=== PATIENT | female | born 1955 | race Caucasian/White ===

== ENCOUNTER → 2019-03-09 | Day surgery (SDC) | payer BC ==
[~2019-03-09] MED LIST: CHLO25TA10 PO; CLONAZEPAM1 MG PO; ESTR1TAB15 PO; IV RINGERS,LACTATED 1000ML 1,000 ML IV SCH; LIDOCAINE 2% PF 5 ML VIAL. ONE; PROPOFOL 20 ML IV ONE
--- NOTE | 2019-03-09 07:20 | HP ---
ADMIT DATE: 03/09/2019 UPDATE HISTORY AND PHYSICAL REFERRING PHYSICIAN: Stefan Rodriguez MD REASON FOR CONSULTATION: Screening colonoscopy. HISTORY OF PRESENT ILLNESS: A 63-year-old female with past medical history significant for hypertension, hyperlipidemia, history of diverticulitis, status post colon resection, is seen for a screening colonoscopy. Bowel habits have been regular without diarrhea or constipation. There has been no melena and/or hematochezia. Weight and appetite have been stable and she is otherwise without additional complaints. PAST MEDICAL HISTORY: Hypertension, hyperlipidemia, diverticulitis, status post resection, also history of breast biopsy, and hysterectomy. ALLERGIES: None. MEDICATIONS: Include chlorthalidone, clonazepam, estradiol. FAMILY AND SOCIAL HISTORY: Nonsmoker, nondrinker. At this time, family history noncontributory. REVIEW OF SYSTEMS: Per records. PHYSICAL EXAMINATION: GENERAL: Reveals a well-nourished, well-developed female who is alert, cooperative, in no acute distress. VITAL SIGNS: Temperature 97.4, pulse 80, respiratory rate 18. HEENT: Reveals normocephalic, atraumatic head. Pupils and extraocular muscles are not tested. Sclerae anicteric. NECK: Supple. LUNGS: Clear. CARDIOVASCULAR: Reveals an S1, S2 without S3, S4 or appreciable murmur. ABDOMEN: Reveals a soft abdomen, normal bowel sounds, without appreciable hepatosplenomegaly. EXTREMITIES: Reveals no cyanosis, clubbing or edema. IMPRESSION: Colorectal screening is recommended at this time. Risks and benefits of procedure including risk of hemorrhage and perforation during the operation were discussed. The patient is willing to proceed at this time. ANGIE MASON MD DR: GRACE/april JOB#: [id number] / [id number]
[2019-03-09 07:51] VITALS: BP 145/70
--- NOTE | 2019-03-12 15:07 | PATHOLOGY ---
[facility] Accession Number: [id number] . 01 Material submitted: . cecum - CECAL POLYP . 01 Clinical history: . Screening . 02 Diagnosis: Colon biopsy, cecal polyp: - Tubular adenoma. (M:dental scheduling coordinator; 03/12/2019) MBR 03/12/2019 1013 Local . 02 Comment: There is no high-grade dysplasia or evidence of malignancy. (JPM:dental scheduling coordinator; 03/12/2019) . 02 Electronically signed: . Jovon Bhatti MD, Pathologist NPI- [id number] . 01 Gross description: . Received in formalin labeled "Decoster, Sobia, cecal polyp," is a single segment of garcia soft tissue measuring 0.3 cm in maximum dimension. The specimen is entirely submitted in cassette A1. (TSD; 03/09/2019) TOB/TOB 03/09/2019 1726 Local . 02 Pathologist provided ICD-10: D12.0, Z12.11 . 02 CPT . 728536 Specimen Comment: A courtesy copy of this report has been sent to Specimen Comment: [phone], . Specimen Comment: Report sent to / DR GREENFIELD Performed at: 01 [facility] [address], [place], [place] [id number] MD Chas Pandya MD Phone: [phone] Performed at: 02 [facility] [address] [place], [place] [id number] MD Jovon Bhatti MD Phone: [phone]
== END ==
LOC: ENDOS 05:53
PROVIDERS: ATTEND Internal Medicine Gastroenterology
DX: Z12.11 Encounter for screening for malignant neoplasm of colon (principal); D12.0 Benign neoplasm of cecum; K57.30 Diverticulosis of large intestine without perforation or abscess without bleeding; K64.0 First degree hemorrhoids; I10 Essential (primary) hypertension; E78.5 Hyperlipidemia, unspecified; Z90.710 Acquired absence of both cervix and uterus; Z98.890 Other specified postprocedural states
CPT/HCPCS: 45380; 88305; J2001; J2704